=== PATIENT | female | born 1965 | race Caucasian/White ===

== ENCOUNTER 2021-04-25 13:15 | Emergency (ER) | payer SELFPAY ==
[2021-04-25 13:38] VITALS: BP 125/68; PULSE 69; RESP 18; TEMP 37.1; O2SAT 96
--- NOTE | 2021-04-25 14:45 | PC.NURSE ---
pt refused vital signs. pt stated, i have a friend coming to get me. I want to leave. I don't want to be in the hospital with COVID people. informed pt that she would need to sign out AMA. Pt stated that she understood.
--- NOTE | 2021-04-25 14:49 | PC.NURSE ---
AMA form signed by patient.
== END 2021-04-25 14:50 | disposition left against medical advice (07) ==
PROVIDERS: Emergency Provider Emergency Medicine; PCP Physician Assistant
DX: Z53.21 Procedure and treatment not carried out due to patient leaving prior to being seen by health care provider (principal)
CPT/HCPCS: 99199

== ENCOUNTER 2021-04-25 15:53 | Emergency (ER) | payer SELFPAY ==
--- NOTE | ~2021-04-25 | XR_ITS ---
EXAMINATION: XR chest 2V EXAM DATE: 04/25/2021 18:09 INDICATION: Dyspnea, fatigue, cough x2wks. TECHNIQUE: Frontal and lateral projections of the chest obtained and reviewed. There is no prior arielle dy for comparison. FINDINGS: The lungs are clear. There are no pleural effusions. The cardiomediastinal silhouette is within normal limits. There is no pneumothorax suspected. The bones and soft tissues are unremarkab le. IMPRESSION: No acute cardiopulmonary findings. Reviewed, dictated and finalized at location A.
[2021-04-25 16:54] VITALS: BP 148/85; PULSE 94; RESP 16; TEMP 36.5; O2SAT 95
--- NOTE | 2021-04-25 17:26 | ED.SOB ---
HPI - SOB/Dyspnea General Chief Complaint: Unspecified Stated Complaint: AAMB Time Seen by Provider: 04/25/21 17:27 Source: patient Mode of arrival: ambulatory Limitations: no limitations History of Present Illness HPI Narrative: 56-year-old woman with a history of asthma and hypertension comes in today complaining of nausea, vomiting, weakness and shortness of breath with cough that has been present for the last week to 10 days. Patient states that she has been having headaches intermittently. She states that she fell and hurt her jaw 2 weeks ago and states that she lost consciousness for an indeterminate amount of time. There were no bystanders that would help her. She states that she took a headache pill recently after she was seen at an emergency department in the area for headache. They did not do any x-rays of her head, she states. Patient was brought to the emergency department by EMS earlier today and she signed out AMA before physician could evaluate her. MD elicited complaint: shortness of breath Pertinent past history: asthma Onset (ago): day(s) (-) Timing: constant and progressively worsening Severity: moderate Exacerbating factors: nothing Relieving factors: nothing Known history of: asthma Associated symptoms: cough, nausea/vomiting and abdominal pain (Mild) Treatment prior to arrival: none Related Data Home oxygen amount: none Home Medications Medication Instructions Recorded Confirmed Unable to Obtain Home Medications 04/25/21 04/25/21 Allergies Allergy/AdvReac Type Severity Reaction Status Date / Time No Known Allergies Allergy Verified 04/25/21 13:58 Review of Systems Review of Systems: All systems reviewed & are unremarkable except as noted in HPI and below Constitutional: Constitutional: Denies chills, Reports fatigue, Denies fever(s) and Reports weakness Course Vital Signs Vital signs: Vital Signs Temperature 36.5 C 04/25/21 16:54 Pulse Rate 94 04/25/21 16:54 Respiratory Rate 16 04/25/21 16:54 Blood Pressure 148/85 H 04/25/21 16:54 Pulse Oximetry 95 04/25/21 16:54 Temperature 36.5 C 04/25/21 16:54 Pulse Rate 94 04/25/21 16:54 Respiratory Rate 16 04/25/21 16:54 Blood Pressure 148/85 H 04/25/21 16:54 Pulse Oximetry 95 04/25/21 16:54 MDM - SOB/Dyspnea Lab Data Result diagrams: 04/25/21 17:56 04/25/21 17:56 Labs: Lab Results 04/25/21 04/25/21 04/25/21 Range/Units 17:56 17:56 17:56 WBC 8.0 (4.8-10.8) K/mm3 RBC 4.39 (4.20-5.40) M/mm3 Hgb 13.2 (12.0-15.0) g/dL Hct 39.7 (35.0-49.0) % MCV 90.4 (78.0-102.0) fL MCH 30.1 (27.0-31.0) pg MCHC 33.2 (32.0-36.0) g/dL RDW 12.3 (11.6-14.4) % Plt Count 212 (150-420) K/mm3 MPV 9.4 (9.2-11.8) fl Immature Gran % (Auto) 0.7 H (0.0-0.0) % Neut % (Auto) 47.6 L (50.0-70.0) % Lymph % (Auto) 42.7 H (18.0-42.0) % [place] % (Auto) 7.7 (2.0-11.0) % Eos % (Auto) 0.7 L (1.0-6.0) % Baso % (Auto) 0.6 (0.0-1.0) % Lymph # (Auto) 3.42 (1.10-4.50) K/mm3 [place] # (Auto) 0.62 (0.10-0.90) K/mm3 Eos # (Auto) 0.06 (0.02-0.50) K/mm3 Baso # (Auto) 0.05 (0.00-0.10) K/mm3 Abs Immat Gran (auto) 0.06 H (0.00-0.00) K/mm3 Absolute Neuts (auto) 3.8 (1.7-7.2) K/mm3 Absolute Nucleated RBC 0.00 (0.00-0.00) K/mm3 Nucleated RBC % 0.0 (0-0.0) % Sodium 144 (136-145) mmol/L Potassium 4.0 (3.5-5.1) mmol/L Chloride 107 (98-108) mmol/L Carbon Dioxide 28 (21-32) mmol/L Anion Gap 9 (8-16) mmol/L BUN 13 (7-18) mg/dL Creatinine 0.69 (0.55-1.02) mg/dL Estim Creat Clear Calc 70 ml/min Estimated GFR > 60 (59 - ) Glucose 82 (70-99) mg/dL Calculated Osmolality 297 H (285-295) mOsm/kg Calcium 8.7 (8.5-10.1) mg/dL Total Bilirubin 0.2 (0.00-1.00) mg/dL AST 32 (15-37) U/L ALT 62 H (14-59) U/L Alkaline Phosphatase 72 (46-116) U/L Tropo
--- NOTE | 2021-04-25 17:44 | ECG_ITS ---
Measurements Intervals [place] Rate: 58 P: -13 SD: 137 QRS: 30 QRSD: 81 T: 37 QT: 398 QTc: 393 Interpretive Statements SINUS BRADYCARDIA WITH SINUS ARRHYTHMIA ATRIAL PREMATURE COMPLEXES BASELINE ARTIFACT- I, II, III, AVR, AVL, AVF, V1-V6 BORDERLINE ECG Electronically Signed On 04-26-2021 8:21:50 CDT by Jose Delgado D.O.
[2021-04-25 18:00] LABS: Basophils Absolute Auto 0.05 K/mm3 (0.00-0.10); Basophils Percent Auto 0.6 % (0.0-1.0); Eosinophils Absolute Auto 0.06 K/mm3 (0.02-0.50); Eosinophils Percent Auto 0.7 % (1.0-6.0); Hematocrit 39.7 % (35.0-49.0); Hemoglobin 13.2 g/dL (12.0-15.0); Immature Granulocyte Absolute 0.06 K/mm3 (0.00-0.00); Immature Granulocyte Percent A 0.7 % (0.0-0.0); Lymphocytes Absolute Auto 3.42 K/mm3 (1.10-4.50); Lymphocytes Percent Auto 42.7 % (18.0-42.0); Mean Corpuscular HGB Conc 33.2 g/dL (32.0-36.0); Mean Corpuscular Hemoglobin 30.1 pg (27.0-31.0); Mean Corpuscular Volume 90.4 fL (78.0-102.0); Mean Platelet Volume 9.4 fl (9.2-11.8); Monocytes Absolute Auto 0.62 K/mm3 (0.10-0.90); Monocytes Percent Auto 7.7 % (2.0-11.0); Neutrophils Absolute Auto 3.8 K/mm3 (1.7-7.2); Neutrophils Percent Auto 47.6 % (50.0-70.0); Platelet Count Result 212 K/mm3 (150-420); Red Blood Count 4.39 M/mm3 (4.20-5.40); Red Cell Distribution Width 12.3 % (11.6-14.4)
[2021-04-25 18:27] LABS: Alanine Aminotransferase 62 U/L (14-59); Albumin Level 3.7 g/dL (3.4-5.0); Alkaline Phosphatase 72 U/L (46-116); Anion Gap 9 mmol/L (8-16); Aspartate Amino Transferase 32 U/L (15-37); Bilirubin,Total 0.2 mg/dL (0.00-1.00); Blood Urea Nitrogen 13 mg/dL (7-18); Calcium 8.7 mg/dL (8.5-10.1); Carbon Dioxide 28 mmol/L (21-32); Chloride 107 mmol/L (98-108); Estimated CRCL calculation 70 ml/min; Estimated Glomerular Filt Rate > 60; Glucose 82 mg/dL (70-99); Osmolality Calculated 297 mOsm/kg (285-295); Sodium 144 mmol/L (136-145); Total Protein 6.3 g/dL (6.4-8.2); Troponin I 4.6 ng/L (0.00-60.4)
[2021-04-25 18:28] LABS: Thyroid Stimulating Hormone Reflex 1.23 u/IU/mL (0.36-3.74)
[2021-04-25 18:33] LABS: Appearance Urine Clear (Clear); Bilirubin Urine Negative (Negative); Color Urine Light Yellow (Yellow); Glucose Urine UA Negative (Negative); Ketones Urine Negative (Negative); Leukocyte Esterase Ur 1+ (Negative); Nitrate Urine Negative (Negative); Protein Urine Negative (Negative); Specific Grav Ur >= 1.030 (1.010-1.020); Urobilinogen Urine 0.2 mg/dL (0.2-1.0); pH Urine 5.5 (5.0-8.0)
[2021-04-25 18:38] LABS: Add Urine Microscopic? YES; Bacteria Urine Trace /hpf; Blood Urine Trace (Negative); RBC Urine 0-2 /hpf (0-2); Squamous Epithelial Cell Urine Rare /hpf (Few); WBC Urine 0-3 /hpf (0-3)
[2021-04-25 18:48] LABS: SARS-CoV-2 RNA PCR Negative (Negative)
--- NOTE | 2021-04-25 19:14 | PC.NURSE ---
report to kizzy toure
[2021-04-25 19:23] VITALS: BP 136/78; PULSE 78; RESP 18; TEMP 36.6; O2SAT 99
--- NOTE | 2021-04-28 14:48 | PC.NURSE ---
PT CALLED ED RN AT THIS TIME TO REQUEST INFORMATION ABOUT XRAYS PERFORMED IN THE ED. RN REPORTED NORMAL CHEST XRAY TO PT. PT ASKS WHAT THE XRAY ON HER HEAD SAID, RN STATES NO RADIOLOGY EXAMS WERE PERFORMED ON PATIENTS HEAD. PT STATES SHE IS STILL FEELING DIZZY. RN STATES PT WAS DIAGNOSED WITH VIRAL ILLNESS AND WILL NEED TO FOLLOW UP WITH PCP TOMORROW AND RETURN TO ED WITH WORSENING CONDITION. PT STATES UNDERSTANDING AND SAYS SHE HAS A F/U APPT WITH PCP TOMORROW
== END 2021-04-25 19:26 | disposition home or self-care (01) ==
PROVIDERS: Emergency Provider Emergency Medicine; PCP Physician Assistant
DX: R53.81 Other malaise (principal); Z20.822 Contact with and (suspected) exposure to COVID-19
CPT/HCPCS: 36415; 71046; 80053; 81001; 84443; 84484; 85025; 93005; 99282; 99284; C9803; U0003; U0005

== ENCOUNTER 2021-04-28 21:39 | Emergency (ER) | payer OTHER, SELFPAY ==
--- NOTE | ~2021-04-28 | XR_ITS ---
EXAMINATION: XR chest 1V portable DATE: 04/28/2021 23:04 INDICATION: Weakness. Bilateral arm and leg numbness. TECHNIQUE: A single frontal view of the chest was obtained. COMPARISON: Chest 2 views 04/25/2021 FINDINGS: There is mild atelectasis in the lower lung zones. No pleural effusion or pneumothorax. The heart size is normal. IMPRESSION: 1. Mild atelectasis in the lower lung zones. Reviewed, dictated and finalized at location A.
--- NOTE | ~2021-04-28 | CT_ITS ---
EXAMINATION: CT brain & sinus wo con DATE: 04/28/2021 22:18 INDICATION: Dizziness. Headache. TECHNIQUE: Computed tomography (CT) of the head and paranasal sinuses was performed without intraveno us contrast. The mA was adjusted according to patient size. Iterative reconstruction technique was em ployed. The dose-length product was 832.33 mGy-cm. COMPARISON: None FINDINGS: HEAD CT: There are scattered areas of low attenuation in the cerebral white matter. There is no intra cranial hemorrhage, acute infarction, or abnormal intracranial mass lesion. The ventricles are normal in size. The orbits are normal. The mastoid air cells are normal. SINUSES CT: There is mild mucosal thickening in the ethmoid sinuses. There is rightward deviation of the nasal septum. The ostiomeatal units are patent. IMPRESSION: 1. Mild nonspecific cerebral white matter disease, which likely represents chronic small vessel ische mahad disease. 2. Mild mucosal thickening in the ethmoid sinuses. 3. Rightward deviation of the nasal septum. Reviewed, dictated and finalized at location A. IMPRESSION: 1. Mild nonspecific cerebral white matter disease, which likely represents electroencephalograph technologist eve small vessel ischemic disease. 2. Mild mucosal thickening in the ethmoid sinuses. 3. Rightward deviation of the nasal septum.
[2021-04-28 21:40] VITALS: BP 143/88; PULSE 78; RESP 18; TEMP 36.4; O2SAT 96
--- NOTE | 2021-04-28 22:32 | ECG_ITS ---
Measurements Intervals [place] Rate: 60 P: -15 MO: 144 QRS: 42 QRSD: 74 T: 46 QT: 383 QTc: 385 Interpretive Statements SINUS RHYTHM BASELINE ARTIFACT- I, II, III, AVR, AVL, AVF, V1-V6 NORMAL ECG Electronically Signed On 05-01-2021 8:17:07 CDT by Jose Delgado D.O.
--- NOTE | 2021-04-28 22:37 | ED.GENADULT ---
HPI - General Adult General Chief complaint: Unspecified Stated complaint: legs numb, legs giving out, arms numbs Time Seen by Provider: 04/28/21 21:41 Source: patient and RN notes reviewed Mode of arrival: ambulatory Limitations: no limitations History of Present Illness Onset (ago): week(s) (1) Location: upper extremity and lower extremity Radiation: non-radiation Severity: mild Pain Consistency: other (mild generalized bodyaches.) Relieving factors: none Exacerbating factors: none Associated symptoms: malaise and nausea/vomiting Related Data Home Medications Medication Instructions Recorded Confirmed hydrocodone-acetaminophen [Vicodin] See Rx Instructions .ROUTE .COMPLEX 04/28/21 04/28/21 lisinopril 10 mg PO DAILY 04/28/21 04/28/21 venlafaxine [Effexor] 75 mg PO BID 04/28/21 04/28/21 Allergies Allergy/AdvReac Type Severity Reaction Status Date / Time No Known Allergies Allergy Verified 04/25/21 13:58 Review of Systems Review of Systems: All systems reviewed & are unremarkable except as noted in HPI and below PMFSH Past Medical History Medical History Numbness and tingling of both lower extremities Social History Social History Substance use type: marijuana Exam Const: General: cooperative, no acute distress and well developed Nutritional Appearance: well nourished Orientation/consciousness: patient oriented x3 Limitations: no limitations HENMT: Head: normocephalic and atraumatic Ears: hearing grossly normal bilaterally, external ears normal and TM's normal bilaterally General nose exam: Normal external nose present and Normal nares present Face and sinus: normal facial exam Mouth: Yes moist mucous membranes Throat: posterior oropharynx normal Eyes: General: appearance normal, both eyes and all related structures Eyelids: eyelids normal Conjunctivae: conjunctivae normal Sclera: sclerae normal Cornea: corneas normal Pupils: Equal, round and reactive pupils present EOM: EOMs intact bilaterally Neck: Neck: normal visual inspection, full ROM, no lymphadenopathy, no meningeal signs and trachea midline Chest: Chest palpation & inspection: normal inspection of the chest Resp: Effort & Inspection: normal respiratory effort Auscultation: clear to auscultation bilaterally Cardio: Jugular venous distension: no JVD Rate: regular rate Rhythm: regular rhythm GI: Inspection: normal to inspection GI Palp: No abdominal tenderness Percussion: Yes normal to percussion Auscultation: normal bowel sounds : General: Yes no CVA tenderness Back/Spine/Pelvis: Back: no CVA tenderness Thoracic/Lumbar Spine: thoracic and lumbar spine normal to inspection Skin: General skin exam: normal color and no rashes or lesions noted Lesions: no lesions Rashes: no rashes Trauma: no lacerations or abrasions Hair: normal Neuro: General: patient oriented x3, no focal motor deficits and CN's II-XI intact bilaterally Cranial nerves: Yes CN's II-XII intact bilaterally, Yes Equal, round and reactive pupils present and Yes Bilaterally intact EOM present Cognition (Neuro): normal cognition Speech: normal speech Gait exam (Neuro): Normal gait present Motor exam (neuro): 5/5 motor strength present throughout Sensory Exam: normal sensation; No Sensory deficit (Neuro) Extrem: General: normal to inspection, full ROM, capillary refill normal and no pedal edema Psych: Appearance: grossly normal and well kempt Mental Status: mental status grossly normal Speech and movement: Normal speech and movement present Affect: normal affect Attitude: cooperative Thought process: Normal thought process present Thought content: Yes Normal thought content present Insight: Good insight present (Psych) Judgement: Good judgement present (Psych) Course Course Emergency Course: Pt was stable in the ED. All movements were normal,
--- NOTE | 2021-04-28 22:43 | PC.NURSE ---
patient asleep woke for labs, pinion and wheel truer & pushes cont equal. Pupils equal. denies n/v & chest pain.
[2021-04-28 22:50] LABS: Basophils Absolute Auto 0.05 K/mm3 (0.00-0.10); Basophils Percent Auto 0.6 % (0.0-1.0); Eosinophils Absolute Auto 0.06 K/mm3 (0.02-0.50); Eosinophils Percent Auto 0.7 % (1.0-6.0); Hematocrit 43.8 % (35.0-49.0); Hemoglobin 14.7 g/dL (12.0-15.0); Immature Granulocyte Absolute 0.04 K/mm3 (0.00-0.00); Immature Granulocyte Percent A 0.5 % (0.0-0.0); Lymphocytes Absolute Auto 3.47 K/mm3 (1.10-4.50); Lymphocytes Percent Auto 41.1 % (18.0-42.0); Mean Corpuscular HGB Conc 33.6 g/dL (32.0-36.0); Mean Corpuscular Hemoglobin 29.8 pg (27.0-31.0); Mean Corpuscular Volume 88.7 fL (78.0-102.0); Mean Platelet Volume 9.4 fl (9.2-11.8); Monocytes Absolute Auto 0.57 K/mm3 (0.10-0.90); Monocytes Percent Auto 6.8 % (2.0-11.0); Neutrophils Absolute Auto 4.3 K/mm3 (1.7-7.2); Neutrophils Percent Auto 50.3 % (50.0-70.0); Platelet Count Result 270 K/mm3 (150-420); Red Blood Count 4.94 M/mm3 (4.20-5.40); White Blood Count 8.4 K/mm3 (4.8-10.8)
[2021-04-28 22:51] LABS: Appearance Urine Clear (Clear); Bilirubin Urine Negative (Negative); Color Urine Light Yellow (Yellow); Glucose Urine UA Negative (Negative); Ketones Urine Negative (Negative); Leukocyte Esterase Ur 2+ (Negative); Nitrate Urine Negative (Negative); Protein Urine Negative (Negative); Urobilinogen Urine 0.2 mg/dL (0.2-1.0); pH Urine 6.5 (5.0-8.0)
[2021-04-28 22:58] LABS: Add Urine Microscopic? YES; Amphetamine Screen Urine Negative (Negative); Bacteria Urine Trace /hpf; Barbiturate Screen Urine Negative (Negative); Benzodiazepines Screen Urine Negative (Negative); Blood Urine Trace (Negative); Cannabinoid Screen Urine Negative (Negative); Cocaine Screen Urine Positive (Negative); Methadone Screen Urine Negative (Negative); Opiate Screen Urine Negative (Negative); Phencyclidine Screen Urine Negative (Negative); RBC Urine 0-2 /hpf (0-2); Squamous Epithelial Cell Urine Few /hpf (Few)
[2021-04-28 23:00] VITALS: BP 120/88; PULSE 70; RESP 18; O2SAT 96
[2021-04-28] MEDS: SODIUM CHLORIDE 0.9% IV 500 ML 999 ML IV CONT (23:00)
[2021-04-28] MEDS: ONDANSETRON INJ 4 MG/2 ML VIAL IV PUSH (23:00)
[2021-04-28] MEDS: PANTOPRAZOLE SODIUM IV 40 MG VIAL IV PUSH (23:00)
[2021-04-28 23:08] LABS: Alanine Aminotransferase 59 U/L (14-59); Alkaline Phosphatase 77 U/L (46-116); Anion Gap 9 mmol/L (8-16); Aspartate Amino Transferase 23 U/L (15-37); Bilirubin,Total 0.2 mg/dL (0.00-1.00); Blood Urea Nitrogen 10 mg/dL (7-18); Carbon Dioxide 28 mmol/L (21-32); Chloride 103 mmol/L (98-108); Estimated Glomerular Filt Rate > 60; Ethanol < 3 mg/dL (0-6); Glucose 80 mg/dL (70-99); Lipase 412 U/L (73-393); Osmolality Calculated 288 mOsm/kg (285-295); Potassium 3.7 mmol/L (3.5-5.1); Sodium 140 mmol/L (136-145); Total Protein 6.9 g/dL (6.4-8.2); Troponin I 4.2 ng/L (0.00-60.4)
[2021-04-28 23:50] VITALS: BP 146/70; PULSE 82; RESP 16; TEMP 36.6; O2SAT 96
== END 2021-04-28 23:50 | disposition home or self-care (01) ==
PROVIDERS: Emergency Provider Emergency Medicine; PCP Physician Assistant
DX: R20.0 Anesthesia of skin (principal); N30.00 Acute cystitis without hematuria
CPT/HCPCS: 36415; 70450; 70486; 71045; 80053; 80307; 81001; 83690; 84484; 85025; 93005; 96361; 96374; 96375; 99284; C9113; J2405; J7040

== ENCOUNTER 2021-05-03 00:08 | Emergency (ER) | payer OTHER, SELFPAY ==
[2021-05-03 00:08] VITALS: BP 152/55; PULSE 74; RESP 18; TEMP 36.3; O2SAT 98
--- NOTE | 2021-05-03 00:15 | ED.EAR ---
HPI - Ear Problem General Chief complaint: Ear Stated complaint: Left Ear Time Seen by Provider: 05/03/21 00:15 Source: patient Mode of arrival: ambulatory Limitations: no limitations History of Present Illness HPI Narrative: 56-year-old woman comes in today complaining of left ear pain that has been off and on for weeks. She states that recently her friend has been helping her clean the wax out of her ear by scored a water into it. She states she has decreased hearing on left side. She has had no recent cough or cold symptoms, difficulty swallowing, difficulty breathing, or fever. Complaint: ear pain Location: left ear Duration: constant Severity: moderate Relieving factors: nothing Exacerbating factors: palpation Discharge from ear: Reports no Associated symptoms ear: decreased hearing Treatment prior to arrival: attempt at ear wax removal Related Data Home Medications Medication Instructions Recorded Confirmed lisinopril 10 mg PO DAILY 04/28/21 05/03/21 venlafaxine [Effexor] 75 mg PO BID 04/28/21 05/03/21 Allergies Allergy/AdvReac Type Severity Reaction Status Date / Time No Known Allergies Allergy Verified 04/25/21 13:58 Review of Systems Review of Systems: All systems reviewed & are unremarkable except as noted in HPI and below Constitutional: Constitutional: Denies chills and Denies fever(s) ENT: Denies nasal congestion and Denies sore throat Respiratory: Respiratory: Denies cough and Denies dyspnea Gastrointestinal: Gastrointestinal: Denies nausea and Denies vomiting Integumentary/Breasts: Skin/Breast: Denies pruritus, Denies erythema and Denies rash Neurologic: Denies vertigo, Denies dizziness and Denies syncope Allergic/Immunologic: Allergic/Immunologic: Denies lip swelling and Denies throat swelling [facility] Past Medical History Medical History (Updated 05/03/21 @ 00:30 by Janes Hall MD) Hypertension Numbness and tingling of both lower extremities Surgical History Surgical History (Updated 05/03/21 @ 00:26 by Janes Hall MD) History of ankle surgery History of carpal tunnel surgery Social History Social History (Updated 05/03/21 @ 00:27 by Janes Hall MD) Smoking status: Current every day smoker Substance use type: marijuana and crack/cocaine Living arrangements: alone Exam Const: General: healthy appearing and alert Orientation/consciousness: patient oriented x3 Limitations: no limitations Other: Mild acute distress. HENMT: Head: normal to inspection Ears: external ears normal, EAC's normal and TM abnormal bulging on the left, dull on the left, wth effusion (Left) and with loss of landmarks on the left Face and sinus: normal facial exam Mouth: Yes moist mucous membranes Throat: posterior oropharynx normal Eyes: Conjunctivae: conjunctivae normal Pupils: Equal, round and reactive pupils present EOM: EOMs intact bilaterally Resp: Effort & Inspection: normal respiratory effort and not labored Auscultation: clear to auscultation bilaterally, no rales, no rhonchi and no wheezes Cardio: Rate: regular rate Rhythm: regular rhythm Heart sounds: no murmurs Skin: General skin exam: normal color, no jaundice and no pallor Rashes: no rashes Neuro: General: patient oriented x3, moves all extremities, no focal motor deficits and CN's II-XI intact bilaterally Speech: normal speech Extrem: General: normal to inspection and no clubbing, cyanosis or edema Psych: Appearance: grossly normal and well kempt Mental Status: mental status grossly normal Affect: normal affect Attitude: cooperative Thought content: Yes Normal thought content present Discharge Plan Discharge Clinical Impression: Otitis media Qualifiers: Otitis media type: suppurative Chronicity: acute Laterality: left Recurrence: non-recurrent Spontaneous tympanic membrane rupture: without spontaneous rupture Qualified Code(s): H66.002 - Acute suppurative otitis media without spontaneou
[2021-05-03 00:34] VITALS: BP 152/55; PULSE 84; RESP 20; TEMP 36.3; O2SAT 99
== END 2021-05-03 00:42 | disposition home or self-care (01) ==
PROVIDERS: Emergency Provider Emergency Medicine; PCP Physician Assistant
DX: H66.002 Acute suppurative otitis media without spontaneous rupture of ear drum, left ear (principal)
CPT/HCPCS: 99283

== ENCOUNTER 2021-06-19 08:03 | Emergency (ER) | payer OTHER, SELFPAY ==
[2021-06-19 08:30] VITALS: BP 135/82; PULSE 96; RESP 18; TEMP 36.6; O2SAT 97
--- NOTE | 2021-06-19 08:50 | ED.BACK ---
HPI - Back Pain/Injury General Chief Complaint: Back Pain/Injury Stated Complaint: neck and back pain Related Data Home Medications Medication Instructions Recorded Confirmed lisinopril 10 mg PO DAILY 04/28/21 05/03/21 venlafaxine [Effexor] 75 mg PO BID 04/28/21 05/03/21 Allergies Allergy/AdvReac Type Severity Reaction Status Date / Time No Known Allergies Allergy Verified 04/25/21 13:58 [facility] Past Medical History Medical History (Updated 05/04/21 @ 00:00 by Kiki Garcia) Hypertension Numbness and tingling of both lower extremities Surgical History Surgical History (Updated 05/03/21 @ 00:26 by Janes Hall MD) History of ankle surgery History of carpal tunnel surgery Social History Social History (Updated 05/03/21 @ 00:27 by Janes Hall MD) Smoking status: Current every day smoker Substance use type: marijuana and crack/cocaine Course Vital Signs Vital signs: Vital Signs Temperature 36.6 C 06/19/21 08:30 Pulse Rate 96 06/19/21 08:30 Respiratory Rate 18 06/19/21 08:30 Blood Pressure 135/82 06/19/21 08:30 Pulse Oximetry 97 06/19/21 08:30 Temperature 36.6 C 06/19/21 08:30 Pulse Rate 96 06/19/21 08:30 Respiratory Rate 18 06/19/21 08:30 Blood Pressure 135/82 06/19/21 08:30 Pulse Oximetry 97 06/19/21 08:30 Discharge Plan Discharge Patient Disposition: Left Without Being Seen Prescriptions: No Action venlafaxine [Effexor] 75 mg Tablet 75 mg PO BID RF: 0 lisinopril 10 mg Tablet 10 mg PO DAILY RF: 0 nitrofurantoin monohyd/m-cryst [Macrobid] 100 mg capsule 100 mg PO Q12H 10 Days Qty: 20 RF: 0 acetaminophen-codeine 300-30 mg tablet 1 tablet PO Q4H PRN (Reason: pain) Qty: 8 RF: 0 amoxicillin-pot clavulanate [Augmentin] 875-125 mg tablet 1 tablet PO Q12H Qty: 20 RF: 0 Follow-up/Referrals: Maria Isabel,OSCAR Jacobson [Primary Care Provider] -
== END 2021-06-19 09:13 | disposition left against medical advice (07) ==
LOC: CHSED 08:06
PROVIDERS: Emergency Provider Emergency Medicine; PCP Physician Assistant
DX: M54.2 Cervicalgia (principal); Z53.8 Procedure and treatment not carried out for other reasons
CPT/HCPCS: 99199

== ENCOUNTER 2022-12-10 06:58 | Emergency (ER) | payer OTHER, SELFPAY ==
--- NOTE | ~2022-12-10 | CT_ITS ---
EXAMINATION: CT brain wo con DATE: 12/10/2022 07:41 INDICATION: Head injury. TECHNIQUE: Computed tomography (CT) of the head was performed without intravenous contrast. The mA wa s adjusted according to patient size. Iterative reconstruction technique was employed. The dose-lengt h product was 605.33 mGy-cm. COMPARISON: Head CT 04/28/2021 FINDINGS: There are scattered areas of low attenuation in the cerebral white matter. There is no intr acranial hemorrhage, acute infarction, or abnormal intracranial mass lesion. The ventricles are jen l in size. The orbits are normal. There is mild mucosal thickening in the paranasal sinuses. There is left periorbital soft tissue swelling. The mastoid air cells are normal. IMPRESSION: 1. Stable mild nonspecific cerebral white matter disease, which likely represents chronic small vesse l ischemic disease. Reviewed, dictated and finalized at location A. IMPRESSION: 1. Stable mild nonspecific cerebral white matter disease, which likely represen ts chronic small vessel ischemic disease.
--- NOTE | ~2022-12-10 | CT_ITS ---
EXAMINATION: CT facial bones wo con DATE: 12/10/2022 07:41 INDICATION: Face injury. TECHNIQUE: Computed tomography (CT) of the facial bones and maxillofacial region was performed withou t intravenous contrast. Automated exposure control and iterative reconstruction technique were employ ed. The dose-length product was 382.74 mGy-cm. COMPARISON: None. FINDINGS: The orbits are normal. There is left periorbital soft tissue swelling. There is rightward d eviation the nasal septum. No fracture. There is mild mucosal thickening in the ethmoid sinuses. 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 IMPRESSION: 1. No fracture. Reviewed, dictated and finalized at location A. IMPRESSION: 1. No fracture.
[2022-12-10 07:09] VITALS: BP 143/75; PULSE 92; RESP 20; TEMP 36.7; O2SAT 95
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
[2022-12-10 08:20] VITALS: BP 126/84; PULSE 95; RESP 20; TEMP 36.7; O2SAT 98
== END 2022-12-10 08:28 | disposition home or self-care (01) ==
PROVIDERS: Emergency Provider Emergency Medicine; PCP Physician Assistant
DX: S06.9X1A Unspecified intracranial injury with loss of consciousness of 30 minutes or less, initial encounter (principal); Y04.2XXA Assault by strike against or bumped into by another person, initial encounter; I10 Essential (primary) hypertension; F12.90 Cannabis use, unspecified, uncomplicated; F14.90 Cocaine use, unspecified, uncomplicated
CPT/HCPCS: 70450; 70486; 99284

== ENCOUNTER 2022-12-18 17:25 | Emergency (ER) | payer OTHER, SELFPAY ==
[2022-12-18 17:25] VITALS: BP 146/75; PULSE 82; RESP 20; TEMP 36.2; O2SAT 96
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
--- NOTE | 2022-12-18 18:18 | PC.NURSE ---
PT REQUESTED CATHIE WRAP TO LEFT ANKLE. ONE WAS APPLIED, AND +PMS NOTED POST CATHIE APPLICATION.
== END 2022-12-18 18:10 | disposition home or self-care (01) ==
LOC: CHSED 18:05
PROVIDERS: Emergency Provider Emergency Medicine; PCP Nurse Practitioner
DX: M25.572 Pain in left ankle and joints of left foot (principal); Y04.2XXA Assault by strike against or bumped into by another person, initial encounter; I10 Essential (primary) hypertension; F17.200 Nicotine dependence, unspecified, uncomplicated; F14.90 Cocaine use, unspecified, uncomplicated; F12.90 Cannabis use, unspecified, uncomplicated
CPT/HCPCS: 99282

== ENCOUNTER 2023-02-23 00:23 | Emergency (ER) | payer OTHER, SELFPAY ==
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
[2023-02-23 00:23] VITALS: BP 132/83; PULSE 99; RESP 20; TEMP 36.9; O2SAT 97
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
--- NOTE | 2023-02-23 01:04 | PC.NURSE ---
0104-PT TRANSPORTED TO IMAGING VIA HOSPITAL WHEELCHAIR, ESCORTED BY MARIE STEARNS.
--- NOTE | 2023-02-23 01:14 | PC.NURSE ---
0113-PT RETURNS FROM IMAGING VIA HOSPITAL WHEELCHAIR, ESCORTED BY [employer].
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
[2023-02-23 01:42] VITALS: BP 136/88; PULSE 93; RESP 16; O2SAT 95
== END 2023-02-23 01:50 | disposition home or self-care (01) ==
PROVIDERS: Emergency Provider Emergency Medicine; PCP Nurse Practitioner
DX: S01.21XA Laceration without foreign body of nose, initial encounter (principal); S01.111A Laceration without foreign body of right eyelid and periocular area, initial encounter; I10 Essential (primary) hypertension; F17.200 Nicotine dependence, unspecified, uncomplicated; Y04.2XXA Assault by strike against or bumped into by another person, initial encounter; Y92.009 Unspecified place in unspecified non-institutional (private) residence as the place of occurrence of the external cause
CPT/HCPCS: 70450; 72125; 99284

== ENCOUNTER 2025-04-01 12:53 | Outpatient (RCR) | payer OTHER, SELFPAY ==
[2025-03-26 13:56] VITALS: BP 106/75; PULSE 80; RESP 14; TEMP 36.6; O2SAT 98; BMI 27.1
[2025-03-26] MEDS: FILGRASTIM-SNDZ 480 MCG/0.8 ML SYRINGE SUB-Q (14:08)
[2025-03-27] MEDS: FILGRASTIM-SNDZ 480 MCG/0.8 ML SYRINGE SUB-Q (13:11)
[2025-03-27 13:12] VITALS: BP 125/71; PULSE 78; RESP 14; TEMP 36.5; O2SAT 98
[2025-03-29 13:15] VITALS: BP 107/63; PULSE 72; RESP 14; TEMP 36.6; O2SAT 97
[2025-03-29] MEDS: FILGRASTIM-SNDZ 480 MCG/0.8 ML SYRINGE SUB-Q (13:23)
[2025-03-30 12:31] VITALS: BP 109/69; PULSE 80; RESP 14; TEMP 36.6; O2SAT 98
[2025-03-30] MEDS: FILGRASTIM-SNDZ 480 MCG/0.8 ML SYRINGE SUB-Q (12:31)
[2025-04-01] MEDS: FILGRASTIM-SNDZ 480 MCG/0.8 ML SYRINGE SUB-Q (13:09)
[2025-04-01 13:20] VITALS: BP 119/70; PULSE 68; RESP 14; TEMP 36.3; O2SAT 98
== END 2025-04-01 12:54 | disposition home or self-care (01) ==
LOC: CHSTREATRM 12:53
PROVIDERS: PCP Physician Assistant; Visit Provider Internal Medicine Hematology & Oncology
DX: C50.112 Malignant neoplasm of central portion of left female breast (principal)
CPT/HCPCS: 96372; Q5101

== ENCOUNTER 2025-06-02 13:39 | Outpatient (RCR) | payer OTHER, SELFPAY ==
[2025-05-27] MEDS: FILGRASTIM-SNDZ 480 MCG/0.8 ML SYRINGE SUB-Q (13:08)
[2025-05-27 13:09] VITALS: BP 126/73; PULSE 72; RESP 14; TEMP 36.6; O2SAT 98; BMI 27.1
[2025-05-28] MEDS: FILGRASTIM-SNDZ 480 MCG/0.8 ML SYRINGE SUB-Q (13:00)
[2025-05-28 13:01] VITALS: BP 117/70; PULSE 80; RESP 14; TEMP 36.5; O2SAT 99; BMI 27.1
[2025-05-29 12:50] VITALS: BP 127/78; PULSE 88; RESP 18; TEMP 36.6; O2SAT 94
[2025-05-29] MEDS: FILGRASTIM-SNDZ 480 MCG/0.8 ML SYRINGE SUB-Q (13:02)
[2025-05-30] MEDS: FILGRASTIM-SNDZ 480 MCG/0.8 ML SYRINGE SUB-Q (12:49)
[2025-05-30 12:50] VITALS: BP 123/84; PULSE 100; RESP 18; TEMP 36.7; O2SAT 95
[2025-05-31 13:29] VITALS: BP 128/79; PULSE 88; RESP 14; TEMP 36.6; O2SAT 97
[2025-05-31] MEDS: FILGRASTIM-SNDZ 480 MCG/0.8 ML SYRINGE SUB-Q (13:34)
[2025-05-31 13:37] LABS: Hematocrit 39.3 % (35.0-49.0); Hemoglobin 13.0 g/dL (12.0-15.0); Mean Corpuscular HGB Conc 33.1 g/dL (32-36); Mean Corpuscular Hemoglobin 30.0 pg (27.0-31.0); Mean Corpuscular Volume 90.8 fL (78.0-102.0); Platelet Count Result 195 K/mm3 (150-420); Red Blood Count 4.33 M/mm3 (4.20-5.40); White Blood Count 7.6 K/mm3 (4.8-10.8)
[2025-05-31 14:14] LABS: Band Neutrophils Percent 0 % (0-6); Eosinophils Absolute Manual 0.00 K/mm3 (0.02-0.50); Eosinophils Percent Manual 0 % (1-6); Lymphocytes Absolute Manual 2.88 K/mm3 (1.1-4.5); Lymphocytes Percent Manual 38 % (18-44); Monocytes Absolute Manual 0.53 K/mm3 (0.1-0.90); Monocytes Percent Manual 7 % (3-9); Myelocytes Percent 3 %; Neutrophils Absolute Manual 3.95 K/mm3 (1.3-6.7); Neutrophils Percent Manual 52 % (46-73); Total Cells Counted 100
[2025-06-01] MEDS: FILGRASTIM-SNDZ 480 MCG/0.8 ML SYRINGE SUB-Q (12:54)
[2025-06-01 12:55] VITALS: BP 116/76; PULSE 100; RESP 16; TEMP 36.1; O2SAT 95; BMI 25.8
--- NOTE | 2025-06-01 12:55 | PC.NURSE ---
patient tolerated injection well. vital sigsns stable. Patient coming tomorrow for last dose of Zarxio. Denies any questions or needs.
[2025-06-02] MEDS: FILGRASTIM-SNDZ 480 MCG/0.8 ML SYRINGE SUB-Q (13:47)
[2025-06-02 13:48] VITALS: BP 118/70; PULSE 72; RESP 14; TEMP 36.6; O2SAT 98
== END 2025-06-02 13:40 | disposition home or self-care (01) ==
LOC: CHSTREATRM 13:39
PROVIDERS: PCP Physician Assistant; Visit Provider Internal Medicine Hematology & Oncology
DX: C50.112 Malignant neoplasm of central portion of left female breast (principal); D70.1 Agranulocytosis secondary to cancer chemotherapy
CPT/HCPCS: 36415; 85025; 96372; Q5101

== ENCOUNTER 2025-06-24 12:58 | Outpatient (CLI) | payer OTHER, SELFPAY ==
--- NOTE | 2025-06-24 | CONSULT_PTH ---
PATIENT: Addie Krishnamurthy [id number] AGE/SX: 60/F ROOM: RE06/24/[address]: Kenn Montana M.D. : 1965 BED: DIS: 06/24/2025 SPEC #: [id number] RECD: 06/24/25 14:00 STATUS: ALICE REPrice #: [id number] COLLIN: 06/24/25 00:[address]: Kenn Montana DEPT: [facility] Consult RECD BY: Belen Martin [place],([facility]) ENTERED: 06/24/25 14:02 SP TYPE: Consult OT DR: Mariela Valdes, PA Tissues: A - Peripheral Smear Procedures: Hematology Consult
[2025-06-24 13:17] LABS: Hematocrit 33.9 % (35.0-49.0); Hemoglobin 11.3 g/dL (12.0-15.0); Mean Corpuscular HGB Conc 33.3 g/dL (32-36); Mean Corpuscular Hemoglobin 30.6 pg (27.0-31.0); Mean Corpuscular Volume 91.9 fL (78.0-102.0); Platelet Count Result 111 K/mm3 (150-420); Red Blood Count 3.69 M/mm3 (4.20-5.40); White Blood Count 14.7 K/mm3 (4.8-10.8)
[2025-06-24 13:31] LABS: Band Neutrophils Percent 5 % (0-6); Basophils Absolute Manual 0.00 K/mm3 (0-0.1); Basophils Percent Manual 0 % (0-1); Eosinophils Absolute Manual 0.00 K/mm3 (0.02-0.50); Eosinophils Percent Manual 0 % (1-6); Lymphocytes Absolute Manual 4.26 K/mm3 (1.1-4.5); Lymphocytes Percent Manual 29 % (18-44); Metamyelocytes Percent 1 %; Monocytes Absolute Manual 2.20 K/mm3 (0.1-0.90); Monocytes Percent Manual 15 % (3-9); Neutrophils Absolute Manual 8.08 K/mm3 (1.3-6.7); Neutrophils Percent Manual 50 % (46-73); Total Cells Counted 100
[2025-06-24 13:43] VITALS: BP 116/78; PULSE 87; RESP 14; TEMP 36.6; O2SAT 95
== END 2025-06-24 12:59 | disposition home or self-care (01) ==
LOC: CHSLAB 13:01 → CHSTREATRM 13:04
PROVIDERS: PCP Physician Assistant; Visit Provider Internal Medicine Hematology & Oncology
DX: C50.112 Malignant neoplasm of central portion of left female breast (principal)
CPT/HCPCS: 36415; 85025; 96372

== ENCOUNTER 2025-06-24 13:52 | Outpatient (RCR) | payer OTHER, SELFPAY ==
[2025-06-18 11:00] VITALS: BP 129/75; PULSE 88; RESP 16; TEMP 36.6; O2SAT 98; BMI 25.7
[2025-06-18] MEDS: FILGRASTIM-SNDZ 480 MCG/0.8 ML SYRINGE SUB-Q (11:11)
[2025-06-21 13:16] VITALS: BP 136/78; PULSE 88; RESP 14; TEMP 36.6; O2SAT 100
[2025-06-21] MEDS: FILGRASTIM-SNDZ 480 MCG/0.8 ML SYRINGE SUB-Q (13:28)
[2025-06-22] MEDS: FILGRASTIM-SNDZ 480 MCG/0.8 ML SYRINGE SUB-Q (13:02)
[2025-06-22 13:04] VITALS: BP 129/84; PULSE 88; RESP 14; TEMP 36.5; O2SAT 98
[2025-06-23 13:01] VITALS: BP 138/75; PULSE 88; RESP 16; TEMP 36.6; O2SAT 98
[2025-06-23] MEDS: FILGRASTIM-SNDZ 480 MCG/0.8 ML SYRINGE SUB-Q (13:10)
[2025-06-24 13:05] VITALS: BP 116/75; PULSE 87; RESP 16; TEMP 36.6; O2SAT 95
[2025-06-24] MEDS: FILGRASTIM-SNDZ 480 MCG/0.8 ML SYRINGE SUB-Q (13:20)
== END 2025-06-24 13:53 | disposition home or self-care (01) ==
LOC: CHSTREATRM 13:52
PROVIDERS: PCP Physician Assistant; Visit Provider Internal Medicine Hematology & Oncology
DX: C50.112 Malignant neoplasm of central portion of left female breast (principal)
CPT/HCPCS: 96372; Q5101

== ENCOUNTER 2025-07-20 10:16 | Outpatient (CLI) | payer OTHER, SELFPAY ==
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
--- OUTSIDE RECORDS SUMMARY | 2025-07-20 10:49 | XMS_ITS | Clinical Summary ---
Author Organization [facility] Address [address] [place] [address] Phone Care Team Providers Care Grain Drier Operator Name Role Phone Provider, None Primary Care Provider Unavailabl e Allergies No known active allergies Medications aspirin 81 MG Chewable Tablet Take 81 mg by mouth daily. Active diclofenac (VOLTAREN) 75 MG Tablet Delayed Response Take 1 Tablet by mouth 2 times daily. 20 Tablet 1 Active venlafaxine (Effexor XR) 75 MG CAPSULE SR 24 HR Take 1 Capsule by mouth daily. 14 Capsule 1 Active albuterol 108 (90 Base) MCG/ACT Aerosol Solution take 2 Puffs by inhalation every 6 hours as needed for Cough. 6.7 g 2 Active Social History Tobacco Use Types Packs/Day Years Used Date Smoking Tobacco: Former Smokeless Tobacco: Never Alcohol Use Standard Drinks/Week Comments Not Currently 0 (1 standard drink = 0.6 oz pur e alcohol) Comments No Sex and Gender Information Value Date Recorded Sex Assigned at Not on file Legal Sex Female 10:44 PM CDT Gender Identity Not on file Sexual Orientation Not on file Last Filed Vital Signs Vital Sign Reading Time Taken Comments Blood Pressure 143/89 05/20/2024 6:22 AM CDT Pulse 85 05/20/2024 6:22 AM CDT Temperature 36.1 C (97 F) 05/20/2024 6:21 AM CDT Respiratory Rate 20 05/20/2024 6:21 AM CDT Oxygen Saturation 98% 05/20/2024 6:22 AM CDT Inhaled Oxygen Concentration - - Weight 68 kg (150 lb) 05/20/2024 6:21 AM CDT Height 170.2 cm (5' 7) 05/20/2024 6:21 AM CDT Body Mass Index 23.49 05/20/2024 6:21 AM CDT Plan of Treatment Health Maintenance Due Date Last Done Comments Hepatitis C Virus (HCV) Screening 1965 HPV/Cotest 1995 Cologuard 2010 Colonoscopy 2010 Colorectal Cancer Screening 2010 Immunochemical Fecal Occult Blood 2010 Pneumococcal Immunization (50+ years) (1 of 1 - PCV) 2015 Zoster Immunization (1 of 2) 2015 Mammogram 12/14/2020 12/15/2019, 11/20, 10/06/2018, Additional history exists Cervical Cancer Screening (CCS) 10/06/2021 Pap Smear 10/06/2021 10/06/2018 Influenza Immunization (#1) 2025 12/0 08/2019, 05/20/2019, 04/21/2019, Additional history exists SARS-COV-2 Immunization (2024- season) 2025 Respiratory Syncytial Virus (RSV) Immunization (Adult) (1 - 1-dose 75+ series) 01/25/2040 DTaP/Tdap/Td Immunization Discontinued 04/03/2019 TdaP Immunization Completed 04/03/2019 Hepatitis B Immunization Aged Out No longer eligible based on patient's age to complete this topic Human Papillomavirus (HPV) Immunization (No Doses Required) Completed Meningococcal Immunization (ACWY) Aged Out No longer eligible based on patient's age to complete this topic Rotavirus Immunization Aged Out No lo nger eligible based on patient's age to complete this topic Insurance MEDICAID [employer] Care Teams Grain Drier Operator Relationship Specialty Start Date End Date Provider, None [place] PCP - General 05/20/24
== END 2025-07-20 10:17 | disposition home or self-care (01) ==
LOC: CHSIMG 10:19
PROVIDERS: PCP Physician Assistant
DX: Z79.818 Long term (current) use of other agents affecting estrogen receptors and estrogen levels (principal); M85.89 Other specified disorders of bone density and structure, multiple sites
CPT/HCPCS: 77080